=== PATIENT | female | born 1960 | race Caucasian/White ===

== ENCOUNTER 2021-10-16 00:56 | Emergency (ER) | payer MEDICARE ==
[~2021-10-16] VITALS: Ht 175.3 cm; Wt 100.0 kg
[2021-10-16] MEDS ORDERED: SYMBICORT1 AE1 IN (01:16)
[2021-10-16] MEDS ORDERED: ARNUITY EL50 MCG/ACT NAB (01:16)
[2021-10-16] MEDS ORDERED: LORATADINE10 M1 PO (01:17)
[2021-10-16] MEDS ORDERED: LIPITOR20 MG PO (01:17)
[2021-10-16] MEDS ORDERED: MORPHINE SUL30 M3 PO (01:18)
[2021-10-16] MEDS ORDERED: FAMOTIDINE20 M1 PO (01:19)
[2021-10-16] MEDS ORDERED: LISINOPRIL10 MG PO (01:19)
[2021-10-16] MEDS ORDERED: HYDROCHLOROT25 MG PO (01:20)
[2021-10-16] MEDS ORDERED: LEVOTHYROXIN125 MCG PO (01:20)
[2021-10-16] MEDS ORDERED: HYDROXYZINE HYD25 MG PO (01:21)
[2021-10-16] MEDS ORDERED: CARVEDILOL3.125 MG PO (01:23)
[2021-10-16] MEDS ORDERED: LEVOCETIRIZINE D5 MG PO (01:23)
[2021-10-16] MEDS ORDERED: ADVIL PM1 CAP PO (01:24)
[2021-10-16] MEDS ORDERED: CVS IBUPROFEN200 M3 PO (01:25)
[2021-10-16 03:34] LABS: HEMATOCRIT 42.9 % (37.0-47.0); HEMOGLOBIN 13.8 g/dl (12.0-16.0); IMMATURE GRANULOCYTES 0.2 % (0.0-5.0); MEAN CELL VOLUME 84.8 fL CALC (80.0-100.0); MEAN CORPUSCULAR HGB 27.3 pG CALC (26.0-32.0); MEAN CORPUSCULAR HGB CONC 32.2 g/dL CAL (32.0-36.0); NEUT# 3.91 thou/uL (2.00-7.15); RED BLOOD COUNT 5.06 mill/uL (4.20-5.60); RED CELL DISTRI WIDTH 14.6 % (11.5-15.5)
[2021-10-16 03:39] LABS: URINE BLOOD DIPSTICK TRACE-INTACT (NEGATIVE); URINE COLOR YELLOW; URINE GLUCOSE - DIPSTICK NEGATIVE (NEGATIVE); URINE KETONE TRACE mg/dL (NEGATIVE); URINE LEUK ESTERASE NEGATIVE (NEGATIVE); URINE PH 5.5 (4.5-8.0); URINE PROTEIN - DIPSTICK NEGATIVE (NEG-TRACE); URINE SPECIFIC GRAVITY >=1.030; URINE UROBILINOGEN - DIPSTICK 0.2 E.U./dL (0.2)
[2021-10-16 03:47] LABS: ALBUMIN 3.4 g/dL (3.2-5.0); ALKALINE PHOSPHATASE 128 u/l (38-126); AMYLASE 43 u/l (30-110); ANION GAP 10 (6-22 (CALC)); BILIRUBIN, TOTAL 0.4 mg/dL (0.0-1.4); BUN 13 mg/dL (7-17); BUN/CREATININE RATIO 15 (12-20 (CALC)); CARBON DIOXIDE 28 mmol/l (22-30); CHLORIDE 99 mmol/l (95-108); CREATININE 0.8 mg/dL (0.5-1.0); GFR > 60 ML/MIN (>=60 (CALC)); GFR FOR AFR.AMER. > 60 ML/MIN (>=60 (CALC)); LIPASE 50 u/l (23-300); POTASSIUM 3.6 mmol/l (3.5-5.1); SGOT/AST 32 u/l (14-36); SODIUM 134 mmol/l (137-146); TOTAL PROTEIN 6.5 g/dL (6.3-8.2)
[2021-10-16 03:58] LABS: MYOGLOBIN 39 ng/mL (0 - 62); URINE BILIRUBIN - DIPSTICK SMALL (NEGATIVE)
[2021-10-16 03:59] LABS: URINE NITRITE - DIPSTICK NEGATIVE (Negative)
[2021-10-16 04:00] LABS: URINE BACTERIA MODERATE hpf; URINE EPITHELIAL CELLS FEW EPI/hpf (0-FEW)
[2021-10-16 04:01] LABS: URINE AMORPH SEDIMENT MANY hpf (NONE-FEW)
[2021-10-16] MEDS ORDERED: ZOFRAN4 MG/TAB PO (05:21)
[2021-10-16 05:40] VITALS: BP 144/72
[2021-10-17] MEDS ORDERED: ZITHROMAX250 MG PO (12:13)
[2021-10-17] MEDS ORDERED: MIRALAX17 GM PO (12:13)
== END 2021-10-16 05:47 | disposition home or self-care (01) ==
LOC: ED 00:56
PROVIDERS: Emergency Medicine
DX: R11.2 Nausea with vomiting, unspecified (principal); R19.7 Diarrhea, unspecified; F11.23 Opioid dependence with withdrawal; I10 Essential (primary) hypertension
CPT/HCPCS: Q9967

== ENCOUNTER 2021-10-17 08:58 | Emergency (ER) | payer MEDICARE ==
[~2021-10-17] VITALS: Ht 175.3 cm; Wt 100.0 kg
[~2021-10-17 08:58] MED LIST: ADVIL PM1 CAP PO; ARNUITY EL50 MCG/ACT NAB; CARVEDILOL3.125 MG PO; CVS IBUPROFEN200 M3 PO; FAMOTIDINE20 M1 PO; HYDROCHLOROT25 MG PO; HYDROXYZINE HYD25 MG PO; LEVOCETIRIZINE D5 MG PO; LEVOTHYROXIN125 MCG PO; LIPITOR20 MG PO; LISINOPRIL10 MG PO; LORATADINE10 M1 PO; MORPHINE SUL30 M3 PO; SYMBICORT1 AE1 IN; ZOFRAN4 MG/TAB PO
[2021-10-17 10:25] LABS: HEMATOCRIT 41.7 % (37.0-47.0); HEMOGLOBIN 13.4 g/dl (12.0-16.0); IMMATURE GRANULOCYTES 0.3 % (0.0-5.0); MEAN CELL VOLUME 85.3 fL CALC (80.0-100.0); MEAN CORPUSCULAR HGB 27.4 pG CALC (26.0-32.0); MEAN CORPUSCULAR HGB CONC 32.1 g/dL CAL (32.0-36.0); NEUT# 1.94 thou/uL (2.00-7.15); RED BLOOD COUNT 4.89 mill/uL (4.20-5.60); RED CELL DISTRI WIDTH 14.8 % (11.5-15.5)
[2021-10-17 11:22] LABS: ALBUMIN 3.1 g/dL (3.2-5.0); ALKALINE PHOSPHATASE 116 u/l (38-126); AMYLASE 43 u/l (30-110); ANION GAP 7 (6-22 (CALC)); BILIRUBIN, TOTAL 0.4 mg/dL (0.0-1.4); BUN 12 mg/dL (7-17); BUN/CREATININE RATIO 14 (12-20 (CALC)); CARBON DIOXIDE 32 mmol/l (22-30); CHLORIDE 98 mmol/l (95-108); CREATININE 0.9 mg/dL (0.5-1.0); GFR > 60 ML/MIN (>=60 (CALC)); GFR FOR AFR.AMER. > 60 ML/MIN (>=60 (CALC)); LIPASE 61 u/l (23-300); POTASSIUM 3.5 mmol/l (3.5-5.1); SGOT/AST 32 u/l (14-36); SODIUM 133 mmol/l (137-146)
[2021-10-17 11:34] LABS: MYOGLOBIN 43 ng/mL (0 - 62)
[2021-10-17] MEDS ORDERED: MIRALAX17 GM PO (12:13)
[2021-10-17] MEDS ORDERED: ZITHROMAX250 MG PO (12:13)
[2021-10-17 12:18] VITALS: BP 173/76
== END 2021-10-17 12:40 | disposition home or self-care (01) ==
LOC: ED 08:58
PROVIDERS: Emergency Medicine
DX: U07.1 COVID-19 (principal); J12.82 Pneumonia due to coronavirus disease 2019; K59.00 Constipation, unspecified; I10 Essential (primary) hypertension; Z79.891 Long term (current) use of opiate analgesic; G89.29 Other chronic pain

== ENCOUNTER 2023-11-04 08:04 | Day surgery (SDC) | payer MEDICARE ==
[~2023-11-04] VITALS: Ht 172.7 cm; Wt 120.7 kg
[~2023-11-04 08:04] MED LIST changes: +B-121000 MC6 PO; +BAYER ASPIRIN E81 MG PO; +CYMBALTA20 MG PO; +EPIPEN 2-P0.3 MG/0.3; +FAMOTIDINE20 M3 PO; +INDAPAMIDE2.5 MG PO; +LEVOTHYROXIN150 MC1 PO; +LEVOTHYROXIN175 MC1 PO; +LIPITOR20 M1 PO; +MEDDOSEPAK PO; +MIRALAX17 GM PO; +MORPHINE SUL15 M2 PO; +OMEPRAZOLE20 MG PO; +TEMAZEPAM15 MG PO; +TRIAMCINOLON0.11 EX; +VITAMIN D-3400 UNIT PO; +ZITHROMAX250 MG PO; +[UNRECOGNIZED DRUG - OTHER] PO
[2023-11-04] MEDS ORDERED: PERCOCET 5/325M1 TAB PO (10:25)
[2023-11-04 11:23] VITALS: BP 135/78
== END 2023-11-04 11:57 | disposition home or self-care (01) ==
LOC: ORM 08:04 → ENDO 08:04 → ORM 09:15
PROVIDERS: ATTEND Surgery
PROC: 0JB70ZZ Excision of Back Subcutaneous Tissue and Fascia, Open Approach (ICD-10-PCS; principal; 2023-11-04)
DX: D17.1 Benign lipomatous neoplasm of skin and subcutaneous tissue of trunk (principal); I10 Essential (primary) hypertension; E78.00 Pure hypercholesterolemia, unspecified; J45.909 Unspecified asthma, uncomplicated
CPT/HCPCS: J0131; J0690